=== PATIENT | male | born 1960 | race Caucasian/White ===

== ENCOUNTER 2022-08-15 11:44 | Observation (INO) | payer BC, MEDICARE ==
--- NOTE | 2022-08-15 12:12 | ED Physician Documentation ---
History of Present Illness - Stated complaint Stated Complaint: SOA,NAUSEA,WEAK - Chief complaint Chief Complaint: Resp - Additonal information Additional information: History obtained from patient. He is a fair historian. 61-year-old male who has a hx of HTN, insulin dependent DM II, CHF, COPD oxygen dependent, presents to the emergency department for a constellation of symptoms. For the last several weeks he has had increasing exertional shortness of air. Denies any swelling in his lower legs and chest pain. No cough, fevers. Also states that for about 2 days he has had some perioral numbness and what he believes to be mild droopiness to his left lower face. Also feels like his right arm is weak. He does take a daily aspirin. Denies any previous history of heart attack or stroke. Also reporting increasing right-sided abdominal pain. Pain is mostly from the right upper quadrant radiating to the lower abdomen. No urinary symptoms or hematuria. States he was hospitalized in [facility] about 2 months ago for a pneumonia and at that time was told he had abdominal muscle separation. denies melena, or hematochezia 1315: Patient's is able to add further pertinent history while the patient is in the CT scanner. 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 He had been undergoing radiation therapy. However he has not had some radiation in quite some time and was scheduled to get a PET scan in [place] This however has not been completed as he is transitioning to [facility] Review of Systems Constitutional: denies: Fever, Chills Eyes: reports: Reviewed and negative Ears: reports: Reviewed and negative Cardiac: denies: Chest pain / pressure, Palpitations, Pedal edema, Calf pain Respiratory: reports: Dyspnea. denies: Cough, Hemoptysis, Wheezing GI: reports: Abdominal Pain : reports: Reviewed and negative Skin: reports: Reviewed and negative Neurologic: reports: Focal weakness, Numbness PD PAST MEDICAL HISTORY - Present Medications Home Medications: Ambulatory Orders Medication Instructions Recorded Confirmed Albuterol Sulfate [Proair 90 mcg IH DAILY 08/15/22 08/15/22 Respiclick] Aspirin [Aspirin EC] 81 mg PO DAILY 08/15/22 08/15/22 Atorvastatin [Lipitor] 10 mg PO DAILY 08/15/22 08/15/22 Fluticasone/Umeclidin/Vilanter 1 each IH DAILY 08/15/22 08/15/22 [Trelegy Ellipta 200-62.5-25] Furosemide [Lasix] 40 mg PO DAILY 08/15/22 08/15/22 Hydralazine HCl 100 mg PO TID 08/15/22 08/15/22 Insulin NPH Hum/Reg Insulin Hm See Rx Instructions .ROUTE .COMPLEX 08/15/22 08/15/22 [Humulin 70/30 Kwikpen] Prednisone [Princess] 5 mg PO DAILY 08/15/22 08/15/22 Valsartan 320 mg PO DAILY 08/15/22 08/15/22 - Allergies Allergies/Adverse Reactions: Allergies Allergy/AdvReac Type Severity Reaction Status Date / Time amlodipine [From [facility]] Allergy Anaphylaxis Verified 08/15/22 12:38 Penicillins Allergy Unknown Verified 08/15/22 11:54 PD ED PE NORMAL - General General: Alert and oriented X 3, No acute distress, Well developed/nourished - HEENT HEENT: Atraumatic, Moist mucous membranes - Neck Neck: Supple, no meningeal sign, No adenopathy - Cardiac Cardiac: RRR, No murmur, Strong equal pulses - Respiratory Respiratory: No respiratory distress, Clear bilaterally - Abdomen Abdomen: Normal bowel sounds, Soft - Derm Derm: Normal color, Warm and dry - Neuro Neuro: Alert and oriented X 3, Normal speech, Other (Mild weakness noted with resistance of the right arm at the elbow wrist and hand. Very subtle left-sided facial droop of the nasolabial fold and lips). No: email campaign manager 2-12 intact, No motor deficit Eye Opening: Spontaneous Motor: Obeys Commands Verbal: Oriented GCS Score: 15 - Psych Psych: Normal mood Results - Vitals Vitals: Vital Signs - 24 hr 08/15/22 08/15/22 08/15/22 11:48 12:19 13:29 Temperature 36.0 C L Heart Rate 79 69 74 Respiratory 28 H 26 H 26 H Rate Blood Pressure 159/75 H 172/102 H 141/73 H O2 Saturation 96 100 97 If not protocol 2 2 : Oxygen Flow, liters/minute Oxygen O2 Source Nasal cannula Oxygen Flow Rate 2 - EKG (time done) 1201 EKG releavant findings:: EKG personally interpreted by author of this note. Relevant findings are: Rate: Rate (enter#) (76) Rhythm: NSR [place]: Normal Intervals: Normal OH. No: Prolonged QT QRS: LVH Ischemia: Normal ST segments Compare to prior EKG: Old EKG unavailable Computer interpretation: Agree with computer - Labs Labs: Laboratory Tests 08/15/22 08/15/22 08/15/22 12:14 12:14 12:14 WBC 12.9 H RBC 5.89 Hgb 15.4 Hct 48.6 MCV 82.5 MCH 26.1 L MCHC 31.7 L RDW 17.6 H Plt Count 428 MPV 9.8 Neut # (Auto) 10.0 H Lymph # (Auto) 1.6 Terrell # (Auto) 0.7 Eos # (Auto) 0.1 Baso # (Auto) 0.2 H Absolute Nucleated RBC 0.00 Nucleated RBC % 0.0 PT INR Sodium 141 Potassium 3.7 Chloride 100 L Carbon Dioxide 29 Anion Gap 12.0 BUN 27 H Creatinine 1.0 Estimated GFR (MDRD) 76 L Glucose 133 H Calcium 9.4 Total Bilirubin 0.9 AST 27 ALT 33 Alkaline Phosphatase 69 B-Natriuretic Peptide 52 Total Protein 8.1 Albumin 4.4 Globulin 3.7 Albumin/Globulin Ratio 1.2 Lipase 40 Urine Color Urine Clarity Urine pH Ur Specific Baird Urine Protein Urine Glucose (UA) Urine Ketones Urine Occult Blood Urine Nitrite Urine Bilirubin Urine Urobilinogen Ur Leukocyte Esterase Ur Microscopic Review Urine Culture Comments 08/15/22 08/15/22 12:14 12:28 WBC RBC Hgb Hct MCV MCH MCHC RDW Plt Count MPV Neut # (Auto) Lymph # (Auto) Terrell # (Auto) Eos # (Auto) Baso # (Auto) Absolute Nucleated RBC Nucleated RBC % PT 10.7 INR 0.9 Sodium Potassium Chloride Carbon Dioxide Anion Gap BUN Creatinine Estimated GFR (MDRD) Glucose Calcium Total Bilirubin AST ALT Alkaline Phosphatase B-Natriuretic Peptide Total Protein Albumin Globulin Albumin/Globulin Ratio Lipase Urine Color YELLOW Urine Clarity CLEAR Urine pH 6.0 Ur Specific Baird 1.015 Urine Protein NEGATIVE Urine Glucose (UA) NEGATIVE Urine Ketones NEGATIVE Urine Occult Blood NEGATIVE Urine Nitrite NEGATIVE Urine Bilirubin NEGATIVE Urine Urobilinogen 0.2 (NORMAL) Ur Leukocyte Esterase NEGATIVE Ur Microscopic Review NOT INDICATED Urine Culture Comments NOT INDICATED - Rads (name of study) cxr Relevant Findings:: Final report received, EMP independent interpretation of test (Per my interpretation and the radiologist no acute cardiopulmonary process) abd pelvis WO Relevant Findings:: Final report received (No acute inflammatory process is seen. No free fluid or free air. No abdominal wall muscle or soft tissue abnormality seen. Dependent atelectasis in bilateral lung bases. Hepatomegaly. No renal stones or hydronephrosis) angio neck Relevant Findings:: Final report received (Limited examination due to motion artifacts. No high-grade stenosis or occlusion carotid arteries or vertebral arteries. Numerous small cervical lymph nodes are present bilaterally, most likely reactive.) angio head Relevant Findings:: Final report received (No acute intracranial abnormality. No large vessel occlusion or high-grade stenosis. 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 Shah) ED course: 61-year-old male who has a history of oxygen dependent COPD, type 2 diabetes insulin-dependent, congestive heart failure and hypertension presents to the emergency department for evaluation of 2 days perioral numbness, subtle left- sided facial droop and right hand weakness. He had also reported exertional shortness of air and right-sided abdominal pain. With regards to the shortness of air, a chest x-ray does not show any findings of pneumonia, pleural effusion or vascular/volume overload. His BNP is only 45. His oxygen requirements have not changed. Clinically he does not appear to have overt heart failure or volume overload. Patient's EKG shows sinus rhythm. No previous for comparison. It is nonischemic. He had reported 2 months of right-sided abdominal pain. Was told he had muscles after being hospitalized in [place] 2 months ago[address] A noncontrast CT was completed. There were no acute intra-abdominal findings. We did obtain a CBC and electrolytes and per my interpretation given age and past medical history, there are no acute unexpected or worrisome findings with the CBC or electrolytes. Subsequently the biggest factor that demanded work-up of this gentleman was the 2 days of perioral numbness, left-sided facial droop and right hand weakness. He was well outside the stroke window. I did complete CT angiograms of the head and neck. Per the radiology interpretation there are no acute findings with the exception of a 2 mm left terminal ICA aneurysm. I suspect this is an incidental finding and not likely contributing to his symptoms. Subsequently I spoke on the phone with [facility] neurologist Dr. Shah and we discussed the case. She feels that the ICA aneurysm is incidental and should simply be reimaged in 1 year and subsequently be evaluated by a neurosurgeon at that time. She would recommend loading the patient today with aspirin and Plavix which I have ordered. She would also recommend an MRI and echocardiogram. Subsequently have spoken with Dr. Drew our inpatient hospitalist who agrees to bring the patient into complete the stroke work-up. I have informed the patient and his that this is an observation admission and that he will likely be discharged later this evening or early tomorrow morning. They are in agreement. Departure - Departure Disposition: ED Place in Observation Clinical Impression: Carotid artery aneurysm CVA (cerebral vascular accident) Qualifiers: CVA mechanism: unspecified Qualified Code(s): I63.9 - Cerebral infarction, unspecified Condition: Stable NIHSS - Time Time: 12:10 - Level of Consciousness Level of consciousness: (0) Alert, Keenly responsive LOC Questions: (0) Answers both Q's correct LOC Commands: (0) Performs both correctly - Gaze Best Gaze: (0) Normal - Visual Visual: (0) No loss - Facial Palsy Facial Palsy: (1) Minor paralysis - Motor Arms (both separate) Motor Arm (right): (1) Drift Motor Arm (left): (0) No drift - Motor Legs (both separate) Motor Leg (right): (0) No drift Motor Leg (left): (0) No drift - Limb Ataxia Limb Ataxia: (0) Absent - Sensory Sensory: (0) Normal - Best Language Best Language: (0) No aphasia - Dysarthria Dysarthria: (0) Normal - Extinction and Inattention (formally neg Extinction and inattention: (0) No abnormality - Total Score/Results Total Score/Result: 2
--- NOTE | 2022-08-15 12:25 | XRAY Report ---
PROCEDURE: Chest 1 View X-Ray INDICATIONS: Chest Pain TECHNIQUE: One view of the chest was acquired. COMPARISON: None. FINDINGS: Surgical changes and devices: None. Lungs and pleura: No pleural effusions or pneumothorax. Lungs are clear. Mediastinum: Mediastinal contours appear normal. Heart size is mildly enlarged. Bones and chest wall: No suspicious bony lesions. Overlying soft tissues appear unremarkable. IMPRESSION: No acute cardiopulmonary process. Reviewed by: Julio C Cabrera MD on 08/15/2022 12:24 PM PDT Approved by: Julio C Cabrera MD on 08/15/2022 12:24 PM PDT Station ID: [id number]
[2022-08-15] MEDS ORDERED: iohexoL-300 100 ML VIAL ONE (12:29)
[2022-08-15 12:33] LABS: BASOPHILS # (AUTO) 0.2 10^3/uL (0.0-0.1); BASOPHILS % (AUTO) 1.2 %; EOSINOPHILS # (AUTO) 0.1 10^3/uL (0.0-0.7); EOSINOPHILS % (AUTO) 0.9 %; HCT - HEMATOCRIT 48.6 % (42.0-52.0); HGB - HEMOGLOBIN 15.4 g/dL (14.0-18.0); LYMPHOCYTES # (AUTO) 1.6 10^3/uL (1.5-3.5); LYMPHOCYTES % (AUTO) 12.7 %; MEAN CORPUSCULAR HEMOGLOBIN 26.1 pg (27.0-31.0); MEAN CORPUSCULAR HGB CONC 31.7 g/dL (32.0-36.0); MEAN CORPUSCULAR VOLUME 82.5 fL (80.0-94.0); MEAN PLATELET VOLUME 9.8 fL (7.4-11.4); MONOCYTES # (AUTO) 0.7 10^3/uL (0.0-1.0); MONOCYTES % (AUTO) 5.7 %; NEUTROPHILS % (AUTO) 77.6 %; PLT - PLATELET COUNT 428 10^3/uL (130-450); RED BLOOD COUNT 5.89 10^6/uL (4.70-6.10); RED CELL DISTRIBUTION WIDTH 17.6 % (12.0-15.0); WHITE BLOOD COUNT 12.9 x10^3/uL (4.8-10.8)
[2022-08-15 12:34] LABS: BILIRUBIN,URINE NEGATIVE (NEGATIVE); GLUCOSE, URINE (UA) NEGATIVE (NEGATIVE); KETONES,URINE (UA) NEGATIVE (NEGATIVE); LEUKOCYTE ESTERASE, URINE NEGATIVE (NEGATIVE); NITRITE,URINE NEGATIVE (NEGATIVE); OCCULT BLOOD,URINE NEGATIVE (NEGATIVE); PROTEIN,URINE NEGATIVE (NEGATIVE); UROBILINOGEN,URINE 0.2 (NORMAL) E.U./dL (NORMAL)
[2022-08-15 12:36] LABS: CLARITY,URINE CLEAR (CLEAR)
[2022-08-15 12:46] LABS: ALBUMIN 4.4 g/dL (3.2-5.5); ALBUMIN/GLOBULIN RATIO 1.2 (1.0-2.2); BILIRUBIN,TOTAL 0.9 mg/dL (0.2-1.0); CALCIUM 9.4 mg/dL (8.5-10.3); POTASSIUM 3.7 mmol/L (3.5-5.0); TOTAL PROTEIN 8.1 g/dL (6.7-8.2)
[2022-08-15 13:07] LABS: INR 0.9 (0.8-1.2); PT - PROTHROMBIN TIME 10.7 secs (9.9-12.6)
[2022-08-15] MEDS ORDERED: SODIUM CHLORIDE 0.9% 1,000 ML IV STA (13:07)
--- NOTE | 2022-08-15 13:58 | CT Report ---
PROCEDURE: ABDOMEN/PELVIS WO INDICATIONS: ruq/rlq pain; ? muscle seperation TECHNIQUE: Noncontrast 5 mm thick sections acquired from the diaphragms to the symphysis. 5 mm coronal and sagi ttal reformats were then performed. For radiation dose reduction, the following was used: automated exposure control, adjustment of mA and/or kV according to patient size. COMPARISON: None. FINDINGS: Image quality: Excellent. Lung bases and heart: Dependent atelectasis in posterior aspect of bilateral lung bases are seen. Hea rt size is enlarged, no pericardial effusion. Liver: There is hepatomegaly, no discrete hepatic lesion.. Gallbladder and biliary tree: Gallbladder is within normal limits. No biliary ductal dilatation. Spleen: Unremarkable. Pancreas: Unremarkable. Adrenals: Unremarkable. Kidneys and ureters: Bilateral kidneys are normal in size. No stones or hydronephrosis. No hydrourete r.. Bowel and peritoneum: No bowel distension. No pathologic free fluid. Lymph nodes: No central or retroperitoneal adenopathy. Vessels: Unremarkable. PELVIS Reproductive organs: Unremarkable. Bladder: Unremarkable. Lymph nodes: Unremarkable. Bones: No aggressive osseous abnormality. Postsurgical changes are seen in lower lumbar spine at L5-S 1 level. Other: No abdominal wall muscle tear or intramuscular hematoma. No soft tissue abnormality is seen in anterior abdominal wall. IMPRESSION: 1. No acute inflammatory process is seen in abdomen or pelvis. No free fluid of free air. 2. No abdominal wall muscle or soft tissue abnormality is seen. No intramuscular or soft tissue hemat hair. 3. Dependent atelectasis in bilateral lung bases. Mild cardiomegaly, no pericardial effusion. 4. Hepatomegaly. 5. No renal stones or hydronephrosis. Reviewed by: Julio C Cabrera MD on 08/15/2022 1:57 PM PDT Approved by: Julio C Cabrera MD on 08/15/2022 1:57 PM PDT Station ID: [id number]
--- NOTE | 2022-08-15 14:03 | CT Report ---
PROCEDURE: ANGIO HEAD W/WO INDICATIONS: L sided facial droop, right arm wekaness CONTRAST: 80ml Omnipaque 300 TECHNIQUE: Precontrast 4.5 mm thick angled axial sections acquired from the foramen magnum to the vertex. Afte r the administration of intravenous contrast, 1 mm thick sections acquired through the [place] of [place] is. Postcontrast 4.5 mm thick sections then re-acquired from the foramen magnum to the vertex. 3-di mensional hnhjpvt-atvozeedm-nuksjzdelf (MIP) and/or volume rendering reformats were acquired of the c entral intracranial vasculature. For radiation dose reduction, the following was used: automated ex posure control, adjustment of mA and/or kV according to patient size. COMPARISON: None. FINDINGS: Image quality: There are motion artifacts. Anterior circulation: Intracranial internal carotid arteries are normal in size and flow. Heart COR TICAL calcification in the cavernous segment of the internal carotid arteries bilaterally. The flow w ithin the paired anterior cerebral arteries is normal and symmetric. The flow within the middle cere bral arteries is normal and symmetric. The anterior communicating artery is seen. There is a 2 mm an eurysm along the undersurface of the terminal left internal carotid artery (series 2 image 267; serie s 17 image 17). Posterior circulation: Visualized portions of the vertebral arteries demonstrate normal caliber, and join to form a normal appearing basilar artery. Flow within the posterior cerebral arteries is norm al and symmetric. No aneurysms are seen. CSF spaces: Ventricles are normal in size and shape. Basal cisterns are patent. No extra-axial flu id collections. Brain: No midline shift. No intracranial bleeds or masses. Rodriguez-white matter interface appears int act. Skull and face: Calvarium and facial bones appear intact, without suspicious lesions. Sinuses: Visualized sinuses and mastoids are clear. IMPRESSION: 1. No acute intracranial abnormality. 2. No large vessel occlusion or high-grade stenosis. 3. A 2 mm aneurysm in the terminal left internal carotid artery. Reviewed by: Vincent Foreman MD on 08/15/2022 2:01 PM PDT Approved by: Vincent Foreman MD on 08/15/2022 2:01 PM PDT Station ID: [id number]
--- NOTE | 2022-08-15 14:07 | CT Report ---
PROCEDURE: ANGIO NECK W INDICATIONS: L sided facial droop, right arm weakness CONTRAST: 80ml Omnipaque 300 TECHNIQUE: After the administration of intravenous contrast, 1.5 mm axial sections acquired from the aortic arch to the [place] of [place]. Coronal 3-D maximum intensity projection (MIP) and/or volume rendering ref ormats were then performed. For radiation dose reduction, the following was used: automated exposur e control, adjustment of mA and/or kV according to patient size. COMPARISON: CT head angiogram, 08/15/2022. FINDINGS: Image quality: There are motion artifacts. Carotid system: The great vessels demonstrate a conventional anatomy as they arise from the aortic a rch. The origins of the common carotid arteries appear patent. The common carotid arteries demonstr ate normal calibers and courses. The bifurcation regions appear normal bilaterally. The internal ca rotid arteries demonstrate normal caliber and course. Posterior circulation: The origins of the vertebral arteries appear patent. The more superior porti ons of the vertebral arteries demonstrate normal course and caliber. They join to form a normal appe aring basilar artery. Soft tissues: Visualized neck soft tissues demonstrate no suspicious abnormalities. The thyroid is normal in size and there are no incidental findings. There are numerous small cervical lymph nodes bi laterally. Bones: No suspicious bony lesions. Visualized cervical spine appears normally aligned. IMPRESSION: 1. Limited examination due to motion artifacts. No high-grade stenosis or occlusion carotid arteries or vertebral arteries. 2. Numerous small cervical lymph nodes are present bilaterally, most likely reactive. Recommend clini seven follow-up The estimate of stenosis included in the report of the imaging study was calculated using the NASCET method CLINICAL RECOMMENDATION STATEMENTS: In patients <35 years with an ITN detected on CT, MRI, or extrathyroidal ultrasound, the Committee re commends further evaluation with dedicated thyroid ultrasound if the nodule is "e1 cm and has no susp icious imaging features, and if the patient has normal life expectancy. In patients "e35 years with an ITN detected on CT, MRI, or extrathyroidal ultrasound, the Committee r ecommends further evaluation with dedicated thyroid ultrasound if the nodule is "e1.5 cm and has no s uspicious imaging features, and if the patient has normal life expectancy. (ACR, 2014) Reviewed by: Vincent Foreman MD on 08/15/2022 2:06 PM PDT Approved by: Vincent Foreman MD on 08/15/2022 2:06 PM PDT Station ID: [id number]
[2022-08-15] MEDS ORDERED: iohexoL-300 100 ML VIAL IVP ONE (14:33)
[2022-08-15] MEDS ORDERED: ASPIRIN CHEW 81 MG TABLET PO STA (14:46)
[2022-08-15] MEDS ORDERED: CLOPIDOGREL 300 MG TABLET PO STA (14:46)
[2022-08-15] MEDS ORDERED: ONDANSETRON ODT 4 MG TABLET TL PRN (14:47)
[2022-08-15] MEDS ORDERED: SODIUM CHLORIDE FLUSH 0.9% 10 ML SYRINGE IVP PRN (14:47)
[2022-08-15] MEDS ORDERED: ONDANSETRON 4 MG/2 ML VIAL IVP PRN (14:47)
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
[2022-08-15] MEDS: SODIUM CHLORIDE FLUSH 0.9% 10 ML SYRINGE IVP SCH (15:53)
[2022-08-15] MEDS: ACETAMINOPHEN 325 MG TABLET PO PRN ×2 (16:58→21:25)
[2022-08-15] MEDS: oxyCODONE 5 MG TABLET PO PRN ×2 (16:58→21:25)
[2022-08-15] MEDS ORDERED: ATORVASTATIN 40 MG TABLET PO SCH (21:00)
[2022-08-15] MEDS: hydrALAZINE 25 MG TABLET PO SCH (21:20)
[2022-08-16] MEDS: SODIUM CHLORIDE FLUSH 0.9% 10 ML SYRINGE IVP SCH ×2 (01:17→08:26)
[2022-08-16 05:07] LABS: BASOPHILS # (AUTO) 0.1 10^3/uL (0.0-0.1); EOSINOPHILS # (AUTO) 0.2 10^3/uL (0.0-0.7); EOSINOPHILS % (AUTO) 1.8 %; HCT - HEMATOCRIT 44.7 % (42.0-52.0); HGB - HEMOGLOBIN 13.9 g/dL (14.0-18.0); LYMPHOCYTES # (AUTO) 2.5 10^3/uL (1.5-3.5); LYMPHOCYTES % (AUTO) 18.6 %; MEAN CORPUSCULAR HEMOGLOBIN 26.1 pg (27.0-31.0); MEAN CORPUSCULAR HGB CONC 31.1 g/dL (32.0-36.0); MEAN CORPUSCULAR VOLUME 83.9 fL (80.0-94.0); MEAN PLATELET VOLUME 9.7 fL (7.4-11.4); MONOCYTES % (AUTO) 7.4 %; NEUTROPHILS # (AUTO) 9.3 10^3/uL (1.5-6.6); PLT - PLATELET COUNT 415 10^3/uL (130-450); RED BLOOD COUNT 5.33 10^6/uL (4.70-6.10); RED CELL DISTRIBUTION WIDTH 17.3 % (12.0-15.0); WHITE BLOOD COUNT 13.3 x10^3/uL (4.8-10.8)
[2022-08-16 05:25] LABS: BUN - BLOOD UREA NITROGEN 24 mg/dL (6-20); CALCIUM 8.6 mg/dL (8.5-10.3); CARBON DIOXIDE - CO2 29 mmol/L (21-32); CHLORIDE 104 mmol/L (101-111); CHOL/HDL RATIO 2.4 (<5.0); CHOLESTEROL 171 mg/dL; CREATININE 0.9 mg/dL (0.6-1.2); GFR - MDRD 86 (>89); GLUCOSE 103 mg/dL (70-100); HDL CHOLESTEROL 71 mg/dL; LDL CHOLESTEROL,CALCULATED 91 mg/dL; LDL/HDL RATIO 1.3 (<3.6); POTASSIUM 3.4 mmol/L (3.5-5.0); SODIUM 141 mmol/L (135-145); TRIGLYCERIDES 47 mg/dL; VLDL CHOLESTEROL 9 mg/dL
[2022-08-16] MEDS: hydrALAZINE 25 MG TABLET PO SCH ×2 (06:28→13:41)
[2022-08-16] MEDS ORDERED: predniSONE 5 MG TABLET PO SCH ×2 (08:00→12:00)
[2022-08-16] MEDS ORDERED: POTASSIUM CHLORIDE 10 MEQ CAPSULE PO ONE (08:45)
[2022-08-16] MEDS ORDERED: CLOPIDOGREL 75 MG TABLET PO SCH (09:00)
[2022-08-16] MEDS ORDERED: ASPIRIN EC 81 MG TABLET PO SCH (09:00)
[2022-08-16] MEDS ORDERED: FUROSEMIDE 40 MG TABLET PO SCH (09:00)
[2022-08-16] MEDS ORDERED: LOSARTAN 50 MG TABLET PO SCH (09:00)
[2022-08-16] MEDS ORDERED: GADOBUTROL 15 MMOL/15 ML VIAL ONE (11:05)
--- NOTE | 2022-08-16 11:43 | PHARMACY PROGRESS NOTE ---
- Best Possible Medication History Admit Date and Time: 08/15/22 1447 Processed by: Pharmacy Medication History completed: Yes Patient Interview: Completed Secondary Source(s): Pharmacy records, Insurance records As the person ultimately responsible for medication therapy, providers are able to order a medication from an existing home medication list in [facility] via the "Reconcile Routine" prior to Confirmation of that medication by computer network support specialist. Such practice is discouraged except when the physician, in their clinical judgment, deems that a medical need exists for a medication without regard to previous use.
[2022-08-16] MEDS ORDERED: INSULIN LISPRO 300 UNIT/3 ML PEN SUBQ SCH ×2 (12:00→17:00)
[2022-08-16] MEDS ORDERED: GADOBUTROL 15 MMOL/15 ML VIAL IVP ONE (12:01)
[2022-08-16 12:29] LABS: ESTIMATED AVERAGE GLUCOSE 137 mg/dL (70-100); HEMOGLOBIN A1c% 6.4 % (4.27-6.07)
--- NOTE | 2022-08-16 12:49 | MRI Report ---
PROCEDURE: BRAIN W/WO INDICATIONS: cancer w mets to spine CONTRAST: GADAVIST 13.3 TECHNIQUE: Noncontrast axial T1 spin echo, axial T2 fast spin echo, sagittal and axial FLAIR, coronal T2 fast sp in echo, axial gradient echo, axial diffusion and ADC through the brain. After the administration of contrast, axial and coronal T1 spin echo with fat saturation through the brain. COMPARISON: Correlation is made with head and neck CT angiogram, 08/15/2022. FINDINGS: Image quality: Excellent. CSF spaces: Basal cisterns are patent. No extra-axial fluid collections. Ventricles are normal in size and shape. Brain: No midline shift. No intracranial bleeds or masses. No abnormal intracranial enhancement. There is cerebral volume loss for age. There is periventricular white matter chronic small vessel is chemic change. The brainstem appears normal. Diffusion-weighted images demonstrate no acute ischemi c insults. No chronic ischemic insults. Normal intravascular flow voids are present. Skull and face: Calvarial marrow is normal in signal. Orbits appear normal. Sinuses: No significant paranasal sinus disease is seen. There is moderate left mastoid air cell flu id seen. IMPRESSION: No findings of acute or subacute infarction are seen. No masses or abnormal enhancement can be seen. Additional findings: Left mastoid air cell fluid Reviewed by: Francisco Feliciano MD on 08/16/2022 11:48 AM [facility] Approved by: Francisco Feliciano MD on 08/16/2022 11:48 AM [facility] Station ID: [id number]
[2022-08-16] MEDS ORDERED: IPRATROPIUM/ALBUTEROL 3 ML NEB INH PRN (13:08)
--- NOTE | 2022-08-16 13:16 | PROVIDER PROGRESS NOTE ---
Hospitalist Cross-cover Note - Cross-Cover Note Cross-Cover Note: ECHOCARDIOGRAM REPORT 08/16/2022 As a Board-certified Milling Machine Operator, credentialed to do and perform Echoes, I did a limited bedside Echo today. Indication: CVA vs TIA Image quality: poor due to morbid obesity Findings: Normal left atrial size, the right atrium is never well seen to comment on size Normal aortic root diameter Normal left-ventricular size with moderate concentric left ventricular hypertrophy. Normal LV contractility, ejection fraction 55%. Doppler shows mild diastolic dysfunction is present Right ventricle probably mildly dilated, RV function not well seen. Mitral annulus calcified. Mitral leaflets appear normal. Aortic valve has sclerosis. Tricuspid and pulmonic valves poorly seen. Doppler of the valves was suboptimal, and therefore incomplete and I cannot report any valve function results No pericardial effusion An agitated saline "bubble" study was done and showed no evidence of spaof-so-lcuu shunt. Summary: Difficult study, poor image quality due to morbid obesity LVH with normal systolic function, mild diastolic dysfunction present Cannot make conclusions about RV function, probably mildly dilated RV Doppler of the valves was incomplete No PFO Recommendations: The patient needs a complete Echo with Doppler study done, ordered with [facility], as an outpatient. The bubble study does not need to be repeated.
--- NOTE | 2022-08-16 14:03 | Discharge Plan ---
Discharge Plan Problem Reviewed?: Yes Disposition: Home, Self Care Condition: Fair Prescriptions: Ipratropium/Albuterol [Duoneb] 3 ml INH Q4HR PRN #90 ea PRN Reason: Wheezing Clopidogrel [Plavix] 75 mg PO DAILY #30 tab Diet: Diabetic Activity Restrictions: Activity as Tolerated Shower Restrictions: No Driving Restrictions: No Health Concerns: You were hospitalized to evaluate for a possible stroke. Your CT of the head as well as the brain MRI showed no evidence of stroke, no masses. Left face symptoms have resolved, therefore this was a TIA (transient ischemic attack) You are being discharged home and advised to take aspirin plus new Plavix. You were treated for your COPD because you were short of breath. A new prescription has been ordered for you to use nebulized DuoNeb. The new prescriptions were electronically sent to your [facility] pharmacy. Please resume all your other usual lung, diabetic and blood pressure medications that you took before. You underwent a walking test to see if you need different oxygen settings and you do: You should be on 2 L/min of oxygen at rest, and increase the setting to 5 L/min with activity. Our staff has arranged for you to have a new Primary Care Provider. You have an appointment to be seen on August 24 by STAGE SET UP WORKER Mayela Correa. She will very likely order a complete Echo exam to be repeated, and also order a CAM recorder to check that irregular rhythm of your heart, since, if it is A-fib, it needs different management. Please speak to her about your shaking or tremors. You may need to be on a (new) medicine for this. Please get re-tested for your sleep apnea and get a CPAP machine. Mayela may need to give you a referral to Cardiology, Pulmonology and Neurology as well. Plan of Treatment: As above. Care Goals: Improvement in symptoms and stabilization are the goals. Assessment: The patient understands and is agreeable with the plan. Additional Instructions or Follow Up instructions: If you have new or worsening symptoms, go to a Walk-In Clinic, or call your new Primary Care Provider for advice, or come to the ER. No Smoking: If you smoke, Please STOP! Call for help. Follow-up with: Myaela Correa, DOG BEHAVIORIST [Provider Admit Priv/Credential] -
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
[2022-08-16 14:36] VITALS: BP 151/68
[2022-08-16] MEDS ORDERED: ALBUTEROL NEB 2.5 MG/3 ML INH SCH (15:00)
[2022-08-16] MEDS ORDERED: IPRATROPIUM/ALBUTEROL 3 ML NEB INH SCH (15:00)
[2022-08-16] MEDS ORDERED: BUDESONIDE 0.5 MG/2 ML NEB INH SCH (19:00)
[2022-08-16] MEDS ORDERED: FORMOTEROL FUMARATE NEB 20 MCG/2 ML INH SCH (19:00)
[2022-08-16] MEDS ORDERED: INSULIN GLARGINE-YFGN 300 UNIT/3 ML PEN SUBQ SCH (21:00)
[2022-08-17] MEDS ORDERED: POTASSIUM CHLORIDE 10 MEQ CAPSULE PO SCH (09:00)
== END 2022-08-16 14:48 | disposition home or self-care (01) ==
LOC: ED 11:44 → MS2 14:47
PROVIDERS: ADMIT Specialist; ATTEND Internal Medicine
DX: G45.9 Transient cerebral ischemic attack, unspecified (principal); Z68.39 Body mass index [BMI] 39.0-39.9, adult; E11.9 Type 2 diabetes mellitus without complications; Z79.4 Long term (current) use of insulin; Z87.891 Personal history of nicotine dependence; I67.1 Cerebral aneurysm, nonruptured; I11.0 Hypertensive heart disease with heart failure; I50.9 Heart failure, unspecified; Z99.81 Dependence on supplemental oxygen; E78.00 Pure hypercholesterolemia, unspecified; J43.9 Emphysema, unspecified; G47.30 Sleep apnea, unspecified; Z79.82 Long term (current) use of aspirin; Z85.820 Personal history of malignant melanoma of skin; Z92.3 Personal history of irradiation; Z86.73 Personal history of transient ischemic attack (TIA), and cerebral infarction without residual deficits; M62.08 Separation of muscle (nontraumatic), other site; E66.9 Obesity, unspecified; K43.9 Ventral hernia without obstruction or gangrene; R25.1 Tremor, unspecified
CPT/HCPCS: 36415; 70496; 70498; 70553; 71045; 74176; 80048; 80053; 80061; 81003; 83036; 83690; 83880; 85025; 85610; 93005; 94640; 94761; 99285; A9270; A9585; G0378; J7512; Q9967; 81001; 83721; 87086

== ENCOUNTER 2022-10-04 12:01 | Outpatient (CLI) | payer MEDICARE ==
[2022-10-04 12:15] LABS: BASOPHILS # (AUTO) 0.1 10^3/uL (0.0-0.1); BASOPHILS % (AUTO) 1.3 %; EOSINOPHILS # (AUTO) 0.4 10^3/uL (0.0-0.7); EOSINOPHILS % (AUTO) 3.7 %; HCT - HEMATOCRIT 42.9 % (42.0-52.0); HGB - HEMOGLOBIN 13.7 g/dL (14.0-18.0); LYMPHOCYTES # (AUTO) 1.7 10^3/uL (1.5-3.5); LYMPHOCYTES % (AUTO) 16.7 %; MEAN CORPUSCULAR HEMOGLOBIN 27.2 pg (27.0-31.0); MEAN CORPUSCULAR HGB CONC 31.9 g/dL (32.0-36.0); MEAN CORPUSCULAR VOLUME 85.3 fL (80.0-94.0); MEAN PLATELET VOLUME 9.2 fL (7.4-11.4); MONOCYTES # (AUTO) 0.9 10^3/uL (0.0-1.0); MONOCYTES % (AUTO) 9.1 %; NEUTROPHILS # (AUTO) 7.1 10^3/uL (1.5-6.6); NEUTROPHILS % (AUTO) 68.7 %; PLT - PLATELET COUNT 353 10^3/uL (130-450); RED BLOOD COUNT 5.03 10^6/uL (4.70-6.10); RED CELL DISTRIBUTION WIDTH 15.7 % (12.0-15.0); WHITE BLOOD COUNT 10.3 x10^3/uL (4.8-10.8)
[2022-10-04 12:28] LABS: ALBUMIN 4.1 g/dL (3.2-5.5); BILIRUBIN,DIRECT 0.2 mg/dL (0.1-0.5); BILIRUBIN,TOTAL 0.8 mg/dL (0.2-1.0); CALCIUM 9.2 mg/dL (8.5-10.3); CREATININE 0.9 mg/dL (0.6-1.2); POTASSIUM 3.7 mmol/L (3.5-5.0); TOTAL PROTEIN 7.6 g/dL (6.7-8.2)
[2022-10-04 12:43] LABS: THYROID STIMULATING HORMONE 2.99 uIU/mL (0.34-5.60)
[2022-10-04 12:45] LABS: FREE T4 (FREE THYROXINE) 0.83 ng/dL (0.58-1.64)
== END 2022-10-04 12:02 | disposition home or self-care (01) ==
LOC: LAB 12:01
PROVIDERS: ATTEND Nurse Practitioner
DX: R21 Rash and other nonspecific skin eruption (principal)
CPT/HCPCS: 36415; 80048; 80076; 84439; 84443; 85025

== ENCOUNTER 2022-10-31 13:48 | Outpatient (CLI) | payer MEDICARE | END 2022-10-31 13:49 | disposition home or self-care (01) | LOC: MAC.MOP 13:48 | PROVIDERS: ATTEND Nurse Practitioner Family | DX: I49.9 Cardiac arrhythmia, unspecified (principal); I10 Essential (primary) hypertension | CPT/HCPCS: 93242 ==

== ENCOUNTER 2022-12-12 13:46 | Emergency (ER) | payer MEDICARE ==
[2022-12-12 14:46] LABS: BASOPHILS # (AUTO) 0.1 10^3/uL (0.0-0.1); EOSINOPHILS # (AUTO) 0.4 10^3/uL (0.0-0.7); EOSINOPHILS % (AUTO) 3.1 %; HCT - HEMATOCRIT 44.7 % (42.0-52.0); HGB - HEMOGLOBIN 14.3 g/dL (14.0-18.0); LYMPHOCYTES # (AUTO) 1.7 10^3/uL (1.5-3.5); LYMPHOCYTES % (AUTO) 14.6 %; MEAN CORPUSCULAR HEMOGLOBIN 27.8 pg (27.0-31.0); MEAN PLATELET VOLUME 9.2 fL (7.4-11.4); MONOCYTES # (AUTO) 0.8 10^3/uL (0.0-1.0); MONOCYTES % (AUTO) 7.1 %; NEUTROPHILS # (AUTO) 8.4 10^3/uL (1.5-6.6); NEUTROPHILS % (AUTO) 73.7 %; PLT - PLATELET COUNT 457 10^3/uL (130-450); RED BLOOD COUNT 5.14 10^6/uL (4.70-6.10); RED CELL DISTRIBUTION WIDTH 13.1 % (12.0-15.0); WHITE BLOOD COUNT 11.5 x10^3/uL (4.8-10.8)
[2022-12-12] MEDS ORDERED: IPRATROPIUM/ALBUTEROL 3 ML NEB INH STA (15:03)
[2022-12-12] MEDS ORDERED: predniSONE 20 MG TABLET PO STA (15:03)
--- NOTE | 2022-12-12 15:05 | XRAY Report ---
PROCEDURE: Chest 1 View X-Ray INDICATIONS: Chest pain TECHNIQUE: One view of the chest was acquired. COMPARISON: None. FINDINGS: Surgical changes and devices: None. Lungs and pleura: No pleural effusions or pneumothorax. Lungs are clear. Mediastinum: Mediastinal contours appear normal. Heart size is normal. Bones and chest wall: No suspicious bony lesions. Overlying soft tissues appear unremarkable. IMPRESSION: No acute cardiopulmonary process. Reviewed by: Anibal Velazco on 12/12/2022 3:04 PM PDT Approved by: Anibal Velazco on 12/12/2022 3:04 PM PDT Station ID: [id number]
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
[2022-12-12 15:24] LABS: TROPONIN I HIGH SENSITIVITY 13.4 ng/L (2.3-19.7)
[2022-12-12 15:36] LABS: ALBUMIN 4.2 g/dL (3.2-5.5); ALBUMIN/GLOBULIN RATIO 1.4 (1.0-2.2); BILIRUBIN,TOTAL 0.6 mg/dL (0.2-1.0); CALCIUM 9.8 mg/dL (8.5-10.3); CREATININE 0.9 mg/dL (0.6-1.3); POTASSIUM 3.3 mmol/L (3.5-4.5); TOTAL PROTEIN 7.1 g/dL (6.4-8.9)
[2022-12-12 16:49] LABS: B. PARAPERTUSSIS- RESP PCR PAN NOT DETECTED; B. PERTUSSIS- RESP PCR PANEL NOT DETECTED; C. PNEUMONIAE- RESP PCR PANEL NOT DETECTED; CORONAVIRUS 229E-RESP PCR NOT DETECTED; CORONAVIRUS HKU1-RESP PCR NOT DETECTED; CORONAVIRUS NL63-RESP PCR NOT DETECTED; CORONAVIRUS OC43-RESP PCR NOT DETECTED; HUMAN METAPNEUMOVIRUS NOT DETECTED; INFLUENZA A- RESP PCR PANEL NOT DETECTED; INFLUENZA B - RESP PCR PANEL NOT DETECTED; M. PNEUMONIAE- RESP PCR PANEL NOT DETECTED; PARAINFLUENZA VIRUS 1 NOT DETECTED; PARAINFLUENZA VIRUS 2 NOT DETECTED; PARAINFLUENZA VIRUS 3 NOT DETECTED; PARAINFLUENZA VIRUS 4 NOT DETECTED; RHINOVIRUS/ENTEROVIRUS NOT DETECTED; RSV- RESP PCR PANEL NOT DETECTED; SARS-CoV-2 -RESP PCR PANEL NOT DETECTED
[2022-12-12 17:03] VITALS: BP 153/104; O2SAT 96
== END 2022-12-12 17:26 | disposition home or self-care (01) ==
LOC: ED 13:46
DX: J44.1 Chronic obstructive pulmonary disease with (acute) exacerbation (principal); Z87.891 Personal history of nicotine dependence; Z20.822 Contact with and (suspected) exposure to COVID-19
CPT/HCPCS: 36415; 71045; 80053; 83690; 84484; 85025; 87633; 93005; 94640; 94664; 99284; J7512

== ENCOUNTER 2022-12-20 14:25 | Outpatient (CLI) | payer MEDICARE ==
[2022-12-20 21:11] LABS: ESTIMATED AVERAGE GLUCOSE 140 mg/dL (70-100); HEMOGLOBIN A1c% 6.5 % (4.27-6.07)
== END 2022-12-20 14:26 | disposition home or self-care (01) ==
LOC: LAB 14:25
PROVIDERS: ATTEND Nurse Practitioner Family
DX: I10 Essential (primary) hypertension (principal); E66.01 Morbid (severe) obesity due to excess calories; J44.9 Chronic obstructive pulmonary disease, unspecified; Z99.81 Dependence on supplemental oxygen
CPT/HCPCS: 36415; 83036; 83880

== ENCOUNTER 2023-03-20 13:15 | Outpatient (CLI) | payer MEDICARE ==
--- NOTE | 2023-03-20 20:47 | XRAY Report ---
PROCEDURE: Foot 2 View RT INDICATIONS: INFECTION FOLLOWING A PROCEDURE TECHNIQUE: 2 views of the foot were acquired. COMPARISON: None. FINDINGS: Bones: No fractures or dislocations. No suspicious bony lesions. Severe first MTP degenerative ernesto nge. First IP degenerative change. There is an ill-defined lucency in the distal shaft of the distal phalanx of the great toe. Soft tissues: No suspicious soft tissue calcifications or masses. IMPRESSION: 1. Degenerative change involving the great toe. 2. Ill-defined lucency in the distal shaft of the distal phalanx of great toe. Comment: Consider foot MRI with and without contrast to exclude osteomyelitis. Reviewed by: Mike Meraz MD on 03/20/2023 8:46 PM PST Approved by: Mike Meraz MD on 03/20/2023 8:46 PM PST Station ID: [id number]
== END 2023-03-20 13:30 | disposition home or self-care (01) ==
LOC: DI.N 13:15
PROVIDERS: ATTEND Nurse Practitioner
DX: T81.40XA Infection following a procedure, unspecified, initial encounter (principal); M19.071 Primary osteoarthritis, right ankle and foot; E66.01 Morbid (severe) obesity due to excess calories; E78.5 Hyperlipidemia, unspecified; E11.65 Type 2 diabetes mellitus with hyperglycemia; I10 Essential (primary) hypertension; Z12.5 Encounter for screening for malignant neoplasm of prostate
CPT/HCPCS: 36415; 73620; 80053; 80061; 81599; 82043; 82570; 83036; 84443; 85025; G0103; 83615; 83721; 84153

== ENCOUNTER 2023-03-20 13:30 | Outpatient (CLI) | payer MEDICARE ==
[2023-03-20 17:41] LABS: BASOPHILS # (AUTO) 0.1 10^3/uL (0.0-0.1); BASOPHILS % (AUTO) 1.1 %; EOSINOPHILS # (AUTO) 0.3 10^3/uL (0.0-0.7); EOSINOPHILS % (AUTO) 2.7 %; HCT - HEMATOCRIT 44.6 % (42.0-52.0); HGB - HEMOGLOBIN 13.8 g/dL (14.0-18.0); LYMPHOCYTES # (AUTO) 2.1 10^3/uL (1.5-3.5); LYMPHOCYTES % (AUTO) 18.3 %; MEAN CORPUSCULAR HEMOGLOBIN 26.6 pg (27.0-31.0); MEAN CORPUSCULAR HGB CONC 30.9 g/dL (32.0-36.0); MEAN CORPUSCULAR VOLUME 86.1 fL (80.0-94.0); MONOCYTES # (AUTO) 0.9 10^3/uL (0.0-1.0); NEUTROPHILS # (AUTO) 7.8 10^3/uL (1.5-6.6); NEUTROPHILS % (AUTO) 69.5 %; PLT - PLATELET COUNT 468 10^3/uL (130-450); RED BLOOD COUNT 5.18 10^6/uL (4.70-6.10); RED CELL DISTRIBUTION WIDTH 14.2 % (12.0-15.0); WHITE BLOOD COUNT 11.2 x10^3/uL (4.8-10.8)
[2023-03-20 18:51] LABS: CHOL/HDL RATIO 2.3 (<5.0); CHOLESTEROL 102 mg/dL; HDL CHOLESTEROL 44 mg/dL; LDL CHOLESTEROL,CALCULATED 41 mg/dL; LDL/HDL RATIO 0.9 (<3.6); TRIGLYCERIDES 84 mg/dL (48-352); VLDL CHOLESTEROL 17 mg/dL
[2023-03-20 18:52] LABS: ALBUMIN 4.3 g/dL (3.2-5.5); ALBUMIN/GLOBULIN RATIO 1.5 (1.0-2.2); BILIRUBIN,TOTAL 0.4 mg/dL (0.2-1.0); CALCIUM 10.2 mg/dL (8.5-10.3); CREATININE 0.9 mg/dL (0.6-1.3); POTASSIUM 3.9 mmol/L (3.5-4.5); TOTAL PROTEIN 7.2 g/dL (6.4-8.9)
[2023-03-20 18:56] LABS: CREATININE,URINE 99.2 mg/dL; MICROALBUM/CREATININE RATIO,UR 18.1 ug/mg (<30.0); MICROALBUMIN,URINE 1.8 mg/dL
[2023-03-20 20:11] LABS: ESTIMATED AVERAGE GLUCOSE 126 mg/dL (70-100)
== END 2023-03-20 13:45 | disposition home or self-care (01) ==
LOC: LAB.N 13:30
PROVIDERS: ATTEND Nurse Practitioner
DX: T81.40XA Infection following a procedure, unspecified, initial encounter (principal); E66.01 Morbid (severe) obesity due to excess calories; E78.5 Hyperlipidemia, unspecified; E11.65 Type 2 diabetes mellitus with hyperglycemia; I10 Essential (primary) hypertension; Z12.5 Encounter for screening for malignant neoplasm of prostate
CPT/HCPCS: 36415; 80053; 80061; 81599; 82043; 82570; 83036; 84443; 85025; G0103; 83615; 83721; 84153

== ENCOUNTER 2023-06-03 08:51 | Outpatient (CLI) | payer MEDICARE, MEDICAID ==
--- NOTE | 2023-06-03 11:26 | MRI Report ---
PROCEDURE: Angio Head WO INDICATIONS: HIST OF ANEURYSM TECHNIQUE: Noncontrast axial 3-D [id number] MR angiogram, with 3-dimensional maximum intensity projection (M IP) reformats of the internal carotid arteries and posterior circulation then performed. COMPARISON: Head CT angiogram 08/15/2022 FINDINGS: Image quality: Diagnostic. Anterior circulation: There is again seen a 2 mm aneurysm projecting inferiorly along the inferior a spect of the distal intracranial left internal carotid artery, as seen on series 9 image 123. Intracranial internal carotid arteries demonstrate normal size and intraluminal flow signal. The macario w within the paired anterior cerebral arteries is normal and symmetric. The flow within the middle c erebral arteries is normal and symmetric. The anterior communicating artery is seen. No stenoses or occlusions are seen. Posterior circulation: Visualized portions of the vertebral arteries demonstrate normal caliber, and join to form a normal appearing basilar artery. The flow within the posterior cerebral arteries is normal and symmetric. No stenoses, occlusions, or aneurysms. IMPRESSION: Stable 2 mm aneurysm along the undersurface of the distal left intracranial internal carotid artery. Reviewed by: Francisco Feliciano MD on 06/03/2023 10:24 AM RUST Approved by: Francisco Feliciano MD on 06/03/2023 10:24 AM RUST Station ID: [id number]
== END 2023-06-03 08:52 | disposition home or self-care (01) ==
LOC: DI 08:51
PROVIDERS: ATTEND Psychiatry & Neurology Neuromuscular Medicine
DX: Z86.79 Personal history of other diseases of the circulatory system (principal); I67.1 Cerebral aneurysm, nonruptured

== ENCOUNTER 2023-06-13 08:47 | Outpatient (CLI) | payer MEDICARE ==
[2023-06-13] MEDS ORDERED: GADOTERATE MEGLUMINE 5 MMOL/10 ML VIAL ONE (09:09)
[2023-06-13] MEDS: GADOTERATE MEGLUMINE 5 MMOL/10 ML VIAL IVP ONE (11:39)
--- NOTE | 2023-06-13 13:49 | MRI Report ---
PROCEDURE: Angio Neck W/WO INDICATIONS: HIST OF ANEURYSM CONTRAST: CLARISCAN 27.2 ML TECHNIQUE: Axial and sagittal balanced GE through the neck. Coronal dynamic MRA after the administration of con trast in the arterial and venous phases, with rotating 3-dimensional maximum intensity projection (GA P) reformats constructed from subtraction images. COMPARISON: CT angiography neck 08/15/2022. FINDINGS: Image quality: Excellent. Carotid system: Great vessels demonstrate a conventional anatomy as they arise from the aortic arch. The origins of the common carotid arteries appear normal. The calibers and courses of the common c arotid arteries are likewise normal. The carotid bifurcations appear normal bilaterally. The manager internet retails sales al carotid arteries are widely patent up to the [place]. Posterior circulation: The origins of the vertebral arteries are unremarkable. The more superior po rtions of the vertebral arteries demonstrate normal course and caliber. Vertebral arteries join to f orm a normal appearing basilar artery. Miscellaneous: Subclavian arteries are patent throughout. Pre-contrast images through the neck demo nstrate no soft tissue abnormalities. IMPRESSION: No aneurysms are identified. No significant arterial abnormalities. Reviewed by: Valdo Hahn MD on 06/13/2023 1:47 PM PST Approved by: Valdo Hahn MD on 06/13/2023 1:47 PM PST Station ID: [id number]
== END 2023-06-13 08:48 | disposition home or self-care (01) ==
LOC: LAB 08:47
PROVIDERS: ATTEND Psychiatry & Neurology Neuromuscular Medicine
DX: Z86.79 Personal history of other diseases of the circulatory system (principal)
CPT/HCPCS: 36415; 70549; 82565; A9575

== ENCOUNTER 2023-09-24 20:05 | Emergency (ER) | payer MEDICARE ==
[2023-09-24 21:16] LABS: BASOPHILS # (AUTO) 0.2 10^3/uL (0.0-0.1); BASOPHILS % (AUTO) 1.1 %; EOSINOPHILS # (AUTO) 0.3 10^3/uL (0.0-0.7); EOSINOPHILS % (AUTO) 2.3 %; HCT - HEMATOCRIT 38.6 % (42.0-52.0); HGB - HEMOGLOBIN 12.3 g/dL (14.0-18.0); LYMPHOCYTES # (AUTO) 2.4 10^3/uL (1.5-3.5); LYMPHOCYTES % (AUTO) 17.9 %; MEAN CORPUSCULAR HGB CONC 31.9 g/dL (32.0-36.0); MEAN CORPUSCULAR VOLUME 84.6 fL (80.0-94.0); MEAN PLATELET VOLUME 9.8 fL (7.4-11.4); MONOCYTES # (AUTO) 1.1 10^3/uL (0.0-1.0); MONOCYTES % (AUTO) 8.4 %; NEUTROPHILS # (AUTO) 9.2 10^3/uL (1.5-6.6); NEUTROPHILS % (AUTO) 69.9 %; PLT - PLATELET COUNT 393 10^3/uL (130-450); RED BLOOD COUNT 4.56 10^6/uL (4.70-6.10); RED CELL DISTRIBUTION WIDTH 14.6 % (12.0-15.0); WHITE BLOOD COUNT 13.2 x10^3/uL (4.8-10.8)
--- NOTE | 2023-09-24 21:20 | ED Physician Documentation ---
History of Present Illness - Stated complaint Stated Complaint: SYNCOPE - Chief complaint Chief Complaint: Neuro - History obtained from History obtained from: Patient, Family - Additonal information Additional information: The patient comes to the emergency department chief complaint of near fainting episode after standing up. Patient has been having these episodes on and off for the last couple of weeks and has had them previously in his life as well without any identifiable cause. The patient had an episode yesterday and this evening and his significant other became concerned and brought him in. The patient apparently has been told that he has an aneurysm in his brain and they are concerned that this could be the cause of his near fainting episodes. The patient states he does have a left-sided headache. Patient states that he basically feels lightheaded when he stands up, but denies any palpitations, chest pain, or increase in his baseline shortness of breath he states that he can feel it coming on so he just starts to sit down. He denies hitting his head. He states that his family helped him to a chair so he did not fall down tonight. He states he did not lose consciousness completely but just felt as though he was going to. His states that he looked as though he was asleep and she had to slap him a couple of times to get him to wake up. Patient states he just feels tired. He states he thinks he has been drinking enough water but he is not sure. He does take diuretics for CHF. He states his lower legs have been a little "puffy" denies any calf pain or unilateral swelling. No increase in baseline shortness of breath. No fevers or chills. PD PAST MEDICAL HISTORY - Past Medical History Past Medical History: Yes Cardiovascular: Congestive heart failure, Hypertension, High cholesterol Respiratory: COPD, Emphysema, Sleep apnea Endocrine/Autoimmune: Type 2 diabetes Psych: Other Derm: Other Other Past Medical History: carotid anyersym. TIA - Past Surgical History Past Surgical History: Yes General: Other Ortho: Knee replacement, Other HEENT: Tonsil/Adenoidectomy - Present Medications Home Medications: Ambulatory Orders Medication Instructions Recorded Confirmed Albuterol Sulfate [Proair 2 puffs INH QID 08/15/22 08/16/22 Respiclick] Aspirin [Aspirin EC] 81 mg PO DAILY 08/15/22 08/15/22 Atorvastatin [Lipitor] 40 mg PO QPM 08/15/22 08/16/22 Fluticasone/Umeclidin/Vilanter 1 each IH DAILY 08/15/22 08/15/22 [Trelegy Ellipta 200-62.5-25] Furosemide [Lasix] 40 mg PO DAILY 08/15/22 08/15/22 Hydralazine HCl 100 mg PO TID 08/15/22 08/15/22 Insulin NPH Hum/Reg Insulin Hm 25 units SUBQ DAILY 08/15/22 08/16/22 [Humulin 70/30 Kwikpen] Prednisone [Princess] 5 mg PO .TAPER 08/15/22 08/16/22 Valsartan 320 mg PO DAILY 08/15/22 08/15/22 Clopidogrel [Plavix] 75 mg PO DAILY #30 tab 08/16/22 Insulin NPH Hum/Reg Insulin Hm 20 units SUBQ QPM 08/16/22 08/16/22 [Novolin 70-30 100 Unit/ml Vial] Ipratropium [Atrovent] 0.5 mg INH TID 08/16/22 08/16/22 Ipratropium/Albuterol [Duoneb] 3 ml INH Q4HR PRN #90 ea 08/16/22 Potassium Chloride 10 meq PO DAILY 08/16/22 08/16/22 predniSONE [Deltasone] 10 mg PO [id number] #42 tab 12/12/22 - Allergies Allergies/Adverse Reactions: Allergies Allergy/AdvReac Type Severity Reaction Status Date / Time amlodipine [From [facility]] Allergy Anaphylaxis Verified 09/24/23 20:15 Penicillins Allergy Unknown Verified 09/24/23 20:15 onion AdvReac Intermediate Hives Verified 09/24/23 20:15 metformin AdvReac Unknown Verified 09/24/23 20:15 - Social History Does the pt smoke?: No Smoking Status: Never smoker Does the pt drink ETOH?: No Does the pt have substance abuse?: No - Immunizations Immunizations are current?: Yes - POLST Patient has POLST: No Results - Vitals Vitals: Vital Signs - 24 hr 09/24/23 09/24/23 09/24/23 20:09 21:26 22:00 Temperature 36.8 C Heart Rate 74 74 81 Respiratory 19 18 18 Rate Blood Pressure 185/87 H 146/71 H 146/71 H O2 Saturation 98 93 97 09/24/23 22:52 Temperature Heart Rate 78 Respiratory 18 Rate Blood Pressure 151/85 H O2 Saturation 99 Oxygen O2 Source Room air - EKG (time done) 2118 EKG releavant findings:: EKG personally interpreted by author of this note. Relevant findings are: Rate: Rate (enter#) (73) Rhythm: NSR [place]: Normal Intervals: Normal IA QRS: Normal Ischemia: Non specific changes Compare to prior EKG: Old EKG unavailable Computer interpretation: Agree with computer - Labs Labs: Laboratory Tests 09/24/23 09/24/23 09/24/23 21:11 21:11 21:11 WBC 13.2 H RBC 4.56 L Hgb 12.3 L Hct 38.6 L MCV 84.6 MCH 27.0 MCHC 31.9 L RDW 14.6 Plt Count 393 MPV 9.8 Neut # (Auto) 9.2 H Lymph # (Auto) 2.4 Cecil # (Auto) 1.1 H Eos # (Auto) 0.3 Baso # (Auto) 0.2 H Absolute Nucleated RBC 0.00 Nucleated RBC % 0.0 PT 13.5 H INR 1.2 Sodium 138 Potassium 3.4 L Chloride 105 Carbon Dioxide 26 Anion Gap 7.0 BUN 19 Creatinine 1.1 Estimated GFR (MDRD) 68 L Glucose 109 H Calcium 9.4 Total Bilirubin 0.5 AST 14 ALT 18 Alkaline Phosphatase 81 B-Natriuretic Peptide Total Protein 6.6 Albumin 3.9 Globulin 2.7 Albumin/Globulin Ratio 1.4 Lipase 205 H Nasal Adenovirus (PCR) Nasal B. parapertussis DNA (PCR) Nasal Coronavir 229E PCR Nasal Coronavir HKU1 PCR Nasal Coronavir NL63 PCR Nasal Coronavir OC43 PCR Nasal Enterovir/Rhinovir PCR Nasal Influenza B PCR Nasal Influenza A PCR Nasal Parainfluen 1 PCR Nasal Parainfluen 2 PCR Nasal Parainfluen 3 PCR Nasal Parainfluen 4 PCR Nasal RSV (PCR) Nasal B.pertussis DNA PCR Nasal C.pneumoniae (PCR) Miki Human Metapneumo PCR Nasal M.pneumoniae (PCR) Nasal SARS-CoV-2 (PCR) 09/24/23 09/24/23 21:11 21:33 WBC RBC Hgb Hct MCV MCH MCHC RDW Plt Count MPV Neut # (Auto) Lymph # (Auto) Cecil # (Auto) Eos # (Auto) Baso # (Auto) Absolute Nucleated RBC Nucleated RBC % PT INR Sodium Potassium Chloride Carbon Dioxide Anion Gap BUN Creatinine Estimated GFR (MDRD) Glucose Calcium Total Bilirubin AST ALT Alkaline Phosphatase B-Natriuretic Peptide 50 Total Protein Albumin Globulin Albumin/Globulin Ratio Lipase Nasal Adenovirus (PCR) NOT DETECTED Nasal B. parapertussis DNA (PCR) NOT DETECTED Nasal Coronavir 229E PCR NOT DETECTED Nasal Coronavir HKU1 PCR NOT DETECTED Nasal Coronavir NL63 PCR NOT DETECTED Nasal Coronavir OC43 PCR NOT DETECTED Nasal Enterovir/Rhinovir PCR NOT DETECTED Nasal Influenza B PCR NOT DETECTED Nasal Influenza A PCR NOT DETECTED Nasal Parainfluen 1 PCR NOT DETECTED Nasal Parainfluen 2 PCR NOT DETECTED Nasal Parainfluen 3 PCR NOT DETECTED Nasal Parainfluen 4 PCR NOT DETECTED Nasal RSV (PCR) NOT DETECTED Nasal B.pertussis DNA PCR NOT DETECTED Nasal C.pneumoniae (PCR) NOT DETECTED Miki Human Metapneumo PCR NOT DETECTED Nasal M.pneumoniae (PCR) NOT DETECTED Nasal SARS-CoV-2 (PCR) NOT DETECTED - Rads (name of study) CT head Relevant Findings:: Final report received, See rad report (Negative for acute findings) chest XR Relevant Findings:: Final report received, See rad report (stable cardiomegaly) PD Medical Decision Making - ED course Complexity details: reviewed results, re-evaluated patient, considered differential, d/w patient, d/w family ED course: The patient was worked up with labs, EKG, and CT scan of the head, all of which were unremarkable. He was treated with IV fluids and was found to be feeling better. No emergent condition has been identified. We have discussed the need for follow-up for his fainting episodes. We have discussed the usual indications for return. Departure - Departure Disposition: 01 Home, Self Care Clinical Impression: Postural dizziness with near syncope Hypertension Qualifiers: Hypertension type: unspecified Qualified Code(s): I10 - Essential (primary) hypertension Condition: Stable Instructions: ED Headache Tension, ED HTN Established, ED Near Syncope Unkn Comments: Overall, your labs look fairly good. Your viral panel is negative and your head CT is without any concerning findings. Your blood pressure is running high here and you definitely should follow-up with your primary doctor to talk about getting better control of your pressure; however, there is no evidence of a stroke or acute heart decompensation or any other emergent condition tonight. Your heart rhythm has been normal. You have been given IV fluids to account for any dehydration that may be impacting your symptoms. You will need close follow-up with your primary doctor to discuss further evaluation for the near fainting episode you have been having. Please call to make the next available appointment. Forms: PCP List Discharge Date/Time: 09/24/23 22:52
[2023-09-24 21:22] LABS: INR 1.2 (0.8-1.2); PT - PROTHROMBIN TIME 13.5 secs (9.9-12.6)
--- NOTE | 2023-09-24 21:29 | XRAY Report ---
PROCEDURE: Chest 1V INDICATIONS: chest pain TECHNIQUE: One view of the chest was acquired. COMPARISON: Chest radiograph 12/12/2022 FINDINGS: Surgical changes and devices: None. Lungs and pleura: No pleural effusions or pneumothorax. Lungs are clear. Mediastinum: Cardiac silhouette is enlarged. Bones and chest wall: No suspicious bony lesions. Overlying soft tissues appear unremarkable. IMPRESSION: Stable cardiomegaly. No acute cardiopulmonary process identified. Reviewed by: Earl Varghese MD on 09/24/2023 9:28 PM PDT Approved by: Earl Varghese MD on 09/24/2023 9:28 PM PDT Station ID: [id number]
[2023-09-24 21:35] LABS: ALBUMIN 3.9 g/dL (3.2-5.5); ALBUMIN/GLOBULIN RATIO 1.4 (1.0-2.2); BILIRUBIN,TOTAL 0.5 mg/dL (0.2-1.0); CALCIUM 9.4 mg/dL (8.5-10.3); CREATININE 1.1 mg/dL (0.6-1.3); POTASSIUM 3.4 mmol/L (3.5-4.5); TOTAL PROTEIN 6.6 g/dL (6.4-8.9)
[2023-09-24] MEDS: SODIUM CHLORIDE 0.9% 1,000 ML IV STA (21:37)
--- NOTE | 2023-09-24 21:50 | CT Report ---
PROCEDURE: Head WO INDICATIONS: Left LEVINE,near syncope, h/o aneurysm TECHNIQUE: Noncontrast 4.5 mm thick angled axial sections acquired from the foramen magnum to the vertex. For r adiation dose reduction, the following was used: automated exposure control, adjustment of mA and/or kV according to patient size. COMPARISON: CTA 08/15/2022, MRI 08/16/2022, MRA 06/11/2023 FINDINGS: Image quality: Excellent. CSF spaces: Basal cisterns are patent. No extra-axial fluid collections. Ventricles are normal in size and shape. Brain: No midline shift. No intracranial masses or hemorrhage. Rodriguez-white matter interface is norm al. Skull and face: Calvarium and visualized facial bones are intact, without suspicious lesions. Sinuses: Small amount fluid is seen in the left mastoid air cells. Right mastoid air cells and visua lized paranasal sinuses are clear. IMPRESSION: 1.No acute intracranial pathology. 2.Small left mastoid air cell effusion. Reviewed by: Earl Varghese MD on 09/24/2023 9:49 PM PDT Approved by: Earl Varghese MD on 09/24/2023 9:49 PM PDT Station ID: [id number]
[2023-09-24 22:27] LABS: B. PARAPERTUSSIS- RESP PCR PAN NOT DETECTED; B. PERTUSSIS- RESP PCR PANEL NOT DETECTED; C. PNEUMONIAE- RESP PCR PANEL NOT DETECTED; CORONAVIRUS 229E-RESP PCR NOT DETECTED; CORONAVIRUS HKU1-RESP PCR NOT DETECTED; CORONAVIRUS NL63-RESP PCR NOT DETECTED; CORONAVIRUS OC43-RESP PCR NOT DETECTED; HUMAN METAPNEUMOVIRUS NOT DETECTED; INFLUENZA A- RESP PCR PANEL NOT DETECTED; INFLUENZA B - RESP PCR PANEL NOT DETECTED; M. PNEUMONIAE- RESP PCR PANEL NOT DETECTED; PARAINFLUENZA VIRUS 1 NOT DETECTED; PARAINFLUENZA VIRUS 2 NOT DETECTED; PARAINFLUENZA VIRUS 3 NOT DETECTED; PARAINFLUENZA VIRUS 4 NOT DETECTED; RHINOVIRUS/ENTEROVIRUS NOT DETECTED; RSV- RESP PCR PANEL NOT DETECTED; SARS-CoV-2 -RESP PCR PANEL NOT DETECTED
[2023-09-24 23:00] VITALS: BP 151/85; O2SAT 99
== END 2023-09-24 22:52 | disposition home or self-care (01) ==
LOC: ED 20:05
DX: I10 Essential (primary) hypertension (principal); I11.0 Hypertensive heart disease with heart failure; I50.9 Heart failure, unspecified; E78.00 Pure hypercholesterolemia, unspecified; J44.9 Chronic obstructive pulmonary disease, unspecified; J43.9 Emphysema, unspecified; E11.9 Type 2 diabetes mellitus without complications; Z79.899 Other long term (current) drug therapy; Z79.82 Long term (current) use of aspirin; Z79.51 Long term (current) use of inhaled steroids; Z79.4 Long term (current) use of insulin; Z79.02 Long term (current) use of antithrombotics/antiplatelets
CPT/HCPCS: 36415; 80053; 83690; 83880; 85025; 85610; 87633; 93005; 96360; 99284

== ENCOUNTER 2023-12-10 07:45 | Outpatient (CLI) | payer MEDICARE ==
[2023-12-10 08:26] LABS: BUN - BLOOD UREA NITROGEN 16 mg/dL (6-20); CALCIUM 8.9 mg/dL (8.5-10.3); CARBON DIOXIDE - CO2 27 mmol/L (21-32); CHLORIDE 108 mmol/L (101-111); CHOLESTEROL 88 mg/dL; CREATININE 0.8 mg/dL (0.6-1.3); GFR - MDRD 98 (>89); GLUCOSE 110 mg/dL (74-104); HDL CHOLESTEROL 44 mg/dL; SODIUM 141 mmol/L (135-145); TRIGLYCERIDES 58 mg/dL; VLDL CHOLESTEROL 12 mg/dL
[2023-12-10 08:27] LABS: LDL CHOLESTEROL,CALCULATED 32 mg/dL; LDL/HDL RATIO 0.7 (<3.6)
[2023-12-10 09:29] LABS: ESTIMATED AVERAGE GLUCOSE 108 mg/dL (70-100); HEMOGLOBIN A1c% 5.4 % (4.27-6.07)
== END 2023-12-10 07:46 | disposition home or self-care (01) ==
LOC: LAB 07:45
PROVIDERS: ATTEND Nurse Practitioner Family
DX: I10 Essential (primary) hypertension (principal); E11.65 Type 2 diabetes mellitus with hyperglycemia; E78.5 Hyperlipidemia, unspecified; E66.01 Morbid (severe) obesity due to excess calories
CPT/HCPCS: 36415; 80048; 80061; 83036; 83721